=== PATIENT | female | born 1990 ===

== ENCOUNTER 2018-04-08 00:41 | Emergency (ER) | payer MEDICAID ==
[2018-04-08 01:07] VITALS: TEMP 98
--- NOTE | 2018-04-08 01:37 | ED PDOC ---
HPI: Abdomen Time Seen by Provider: 04/08/18 01:08 Chief Complaint (Nursing): Abdominal Pain Chief Complaint (Provider): Abdominal Pain History Per: Patient History/Exam Limitations: no limitations Onset/Duration Of Symptoms: Hrs (x1) Current Symptoms Are (Timing): Still Present Additional Complaint(s): 27 year old female presents to the emergency department with left- sided abdominal pain associated with urine urgency and back sensitivity, onset of 1 hour. She denies any bloody urine, nausea or vomiting. PMD: Dr. Korin Pena Past Medical History Reviewed: Historical Data, Nursing Documentation, Vital Signs Vital Signs: Last Vital Signs Temp 98 F 04/08/18 01:04 Pulse 62 04/08/18 01:04 Resp 18 04/08/18 01:04 BP 124/75 04/08/18 01:04 Pulse Ox 100 04/08/18 04:48 - Medical History PMH: No Chronic Diseases - Surgical History Surgical History: No Surg Hx - Family History Family History: States: Unknown Family Hx - Social History Current smoker - smoking cessation education provided: No Alcohol: None Drugs: Denies - Allergies Allergies/Adverse Reactions: Allergies Allergy/AdvReac Type Severity Reaction Status Date / Time doxycycline AdvReac NAUSEA Verified 04/08/18 01:04 Review of Systems ROS Statement: Except As Marked, All Systems Reviewed And Found Negative Gastrointestinal: Positive for: Abdominal Pain (left-sided). Negative for: Nausea, Vomiting Genitourinary Female: Positive for: Other (urgency). Negative for: Hematuria Musculoskeletal: Positive for: Back Pain (sensitivity) Physical Exam - Reviewed Nursing Documentation Reviewed: Yes Vital Signs Reviewed: Yes - Physical Exam Appears: Positive for: Well, Non-toxic, No Acute Distress Head Exam: Positive for: ATRAUMATIC, NORMAL INSPECTION, NORMOCEPHALIC Skin: Positive for: Normal Color Eye Exam: Positive for: Normal appearance ENT: Positive for: Normal ENT Inspection Neck: Positive for: Normal Cardiovascular/Chest: Positive for: Regular Rate, Rhythm Respiratory: Positive for: Normal Breath Sounds Gastrointestinal/Abdominal: Positive for: Normal Exam, Soft. Negative for: Tenderness Back: Positive for: Normal Inspection. Negative for: L CVA Tenderness, R CVA Tenderness Extremity: Positive for: Normal ROM (upper/lower) Neurologic/Psych: Positive for: Alert (x3), Oriented. Negative for: Motor/ Sensory Deficits - Laboratory Results Result Diagrams: 04/08/18 01:36 04/08/18 01:36 - ECG O2 Sat by Pulse Oximetry: 100 (RA) Pulse Ox Interpretation: Normal Medical Decision Making Medical Decision Making: Initial Impression: 27 y/o female with non-specific abdominal pain Initial Plan: * BMP * Urine * Urine dipstick * CBC * Toradol 30mg IV * UA * US transvaginal Time: 329 --Labs: no significant clinical abnormality. --Urine: no active infection. Negative for . Time: 438 --US transvag FINDINGS: Uterus/cervix: Unremarkable. No myometrial mass. Endometrial stripe measures 8 mm in thickness. Right ovary: Unremarkable. No mass. Normal blood flow. Left ovary: Unremarkable. No mass. Normal blood flow. Free fluid: No free fluid. IMPRESSION: Normal pelvic ultrasound. Time: 446 --Upon provider re-evaluation, patient is feeling better, medically stable and requires no further treatment in the ED at this time. Patient will be discharged home. Counseling was provided and all questions were answered regarding diagnosis and need for follow up with PMD in 1-2 days. There is agreement to discharge plan. Return if symptoms persist or worsen. Clinical Impression: Abdominal pain Scribe Attestation: Documented by Sushma Mendez, acting as a scribe for Chapo Vargas MD. Provider Scribe Attestation: All medical record entries made by the Scribe were at my direction and personally dictated by me. I have reviewed the chart and agree that the record accurately reflects my personal performance of the history, physical exam, medical decision making, and the department course for this patient. I have also personally directed, reviewed, and agree with the discharge instructions and disposition. Disposition - Clinical Impression Clinical Impression: Abdominal pain - Patient ED Disposition Is Patient to be Admitted: No Counseled Patient/Family Regarding: Studies Performed, Diagnosis, Need For Followup - Disposition Referrals: Korin Pena MD [Primary Care Provider] - Disposition: Routine/Home Disposition Time: 04:47 Condition: IMPROVED Instructions: Acute Abdomen (Belly Pain) Forms: Clean PET (Maltese)
[2018-04-08 01:48] LABS: BASO # 0.1 K/uL (0.0-0.2); BASO % 1.2 % (0.0-2.0); EOS # 0.2 K/uL (0.0-0.7); EOS % 2.6 % (0.0-4.0); HEMOGLOBIN 13.6 g/dL (12.0-16.0); LYMPH # 1.9 K/uL (1.0-4.3); LYMPH % 26.2 % (20.0-40.0); MEAN CELL VOLUME 93.6 fl (81.0-99.0); MEAN CORPUSCULAR HEMOGLOBIN 32.2 pg (27.0-31.0); MEAN CORPUSCULAR HGB CONC 34.4 g/dL (33.0-37.0); MEAN PLATELET VOLUME 6.9 fl (7.2-11.7); MONO # 0.3 K/uL (0.0-0.8); MONO % 4.6 % (0.0-10.0); NEUT # 4.6 K/uL (1.8-7.0); NEUT % 65.4 % (50.0-75.0); NRBC % 0.1 % (0.0-0.0); RBC 4.23 Mil/uL (3.80-5.20); RED CELL DISTRIBUTION WIDTH 13.9 % (11.5-14.5); WHITE BLOOD COUNT 7.1 K/uL (4.8-10.8)
[2018-04-08 02:20] LABS: SQUAMOUS EPITHIAL < 1 /hpf (0-5); URINE BACTERIA RARE (<OCC); URINE BILIRUBIN NEGATIVE (NEGATIVE); URINE BLOOD SMALL (NEGATIVE); URINE CLARITY CLEAR (Clear); URINE COLOR STRAW (YELLOW); URINE GLUCOSE (UA) NEG (Normal); URINE LEUKOCYTE ESTERASE NEG Leu/uL (Negative); URINE PROTEIN NEGATIVE (NEGATIVE); URINE UROBILINOGEN 0.2-1.0 mg/dL (0.2-1.0)
[2018-04-08 02:38] LABS: BLOOD UREA NITROGEN 12 mg/dl (7-17); GFR NON-AFRICAN AMERICAN > 60
[2018-04-08 02:39] LABS: CALCIUM 9.9 mg/dL (8.4-10.2)
[2018-04-08 05:16] VITALS: BP 114/77; PULSE 54; RESP 16; O2SAT 98
--- NOTE | 2018-04-08 12:06 | US ---
Date of service: 04/08/2018 HISTORY: Abdominal pain. LMP 04/01/2018. COMPARISON: None available. TECHNIQUE: Transvaginal only. Real -time technique with 2D, duplex and color Doppler FINDINGS: UTERUS: Measures 3.6 x 4.6 x 7.4 cm. Normal in size and appearance. No fibroid or other mass lesion seen. ENDOMETRIUM: Measures 8.1 mm in diameter. Unremarkable. CERVIX: No cervical abnormality identified. RIGHT OVARY: Measures 2.1 x 3.2 x 3.1 cm. No solid mass. Normal flow. Dominant cyst 1.4 x 1.6 cm. Multiple subcentimeter follicles. LEFT OVARY: Measures 1.4 x 2.2 x 2.5 cm. No solid mass. Normal flow. Multiple subcentimeter follicles. FREE FLUID: No significant free fluid noted. OTHER FINDINGS: None. IMPRESSION: No significant or acute findings to account for/ related to the clinical presentation. Additional benign and/or incidental findings described above. Concordant results (preliminary interpretation) provided by [facility]. Procedure Completed: 02:16 Preliminary ([facility]) Report: Dictated and Authenticated: 04:39. Final Interpretation: 12:05.
== END 2018-04-08 05:00 | disposition home or self-care (01) ==
LOC: H.ER 00:41
DX: R10.9 Unspecified abdominal pain (principal)
CPT/HCPCS: 76830; 80048; 81003; 81025; 85025; 96374; 99283; J1885